=== PATIENT | female | born 2000 ===

== ENCOUNTER 2022-01-14 04:07 | Inpatient (IN) ==
[2022-01-14] MEDS ORDERED: LACTATED RINGER'S 1,000 ML IV ONE (08:05)
[2022-01-14] MEDS ORDERED: OXYTOCIN 30 UNITS/500 ML BAG IV PRN ×3 (08:38→20:26)
[2022-01-14] MEDS ORDERED: LACTATED RINGER'S 1,000 ML IV PRN (08:38)
[2022-01-14 08:49] LABS: Hematocrit (blood only) 41.4 % (37-47); Hemoglobin 14.2 g/dL (12.0-16.0); Mean Corpuscular Hemoglobin 33.6 pg (25-34); Mean Corpuscular Hgb Conc 34.3 g/dL (32-36); Mean Corpuscular Volume 97.9 fL (80-100); Mean Platelet Volume 9.9 fL (7.4-10.4); Platelet Count 208 K/uL (130-400); RDW Coefficient of Variation 14.5 % (11.5-14.5); RDW Standard Deviation 51.8 fL (36.4-46.3); Red Blood Count 4.23 M/uL (4.2-5.4); White Blood Count 14.09 K/uL (4.8-10.8)
[2022-01-14] MEDS ORDERED: ONDANSETRON INJ 2 MG/ML 2 ML VIAL IV PRN ×2 (08:50→14:27)
[2022-01-14] MEDS ORDERED: BUTORPHANOL TARTRATE 1 MG/ML VIAL IV PRN (08:50)
[2022-01-14] MEDS ORDERED: ACETAMINOPHEN 325 MG TAB PO PRN ×2 (08:56→20:26)
--- NOTE | 2022-01-14 09:03 | History & Physical Report ---
Date of Service January 14, 2022 Assessment & Plan (1) Uterine contractions at greater than 20 weeks of gestation: (2) Labor, prolonged latent phase: Plan: 21 years old at 39 weeks and 6 days of gestation presenting with contractions since yesterday. Minimal cervical change since admission about 4 hours ago. Uncomfortable with contractions. Vital signs stable afebrile, heart rate reassuring, GBS negative, Discussed prolonged latent phase management as IV fluid hyperhydration with expectant management versus oxytocin augmentation and AROM when able. Discussed pain management during as IV pain medications versus epidural in details. Patient denies any pain management right now and wants to wait longer for epidural and desires expectant management. Admission and Anticipated Discharge Date Admission Date: January 14, 2022 History of Present Illness Primary Care Provider: NO PCP Patient is a 22-year-old G1, P0 at 39 weeks and 6 days of gestation who presented to labor and delivery with contractions. She states she has contractions all day yesterday they got worse overnight and she had to come in at 4 AM when they become every 2 to 5 minutes. She rates her pain 8 out of 10. She denies leakage of fluid or vaginal bleeding. She reports good movements. Her has been uncomplicated except she had chlamydia infection in first trimester, treated and test of cure was negative. She has been with same partner since then. And he was treated. GBS negative. Allergies Allergy/AdvReac Type Severity Reaction Status Date / Time No Known Allergies Allergy Unverified 01/14/22 04:36 Home Medications Medication Instructions Recorded Confirmed Type vit no.95-ferrous 1 tab PO DAILY 01/14/22 01/14/22 History fumarate 28 mg-folic acid 800 mcg tablet () Patient History Social History Smoking Status: Never smoker Hx Alcohol Use: No Hx Substance Use: No Preferred Language: [place] Blocklayer Required: No Beliefs That Will Affect Care: None marital status: Current Living Situation: Spouse Other Information That Helps Us Care for You: No Feels Safe at Home: Yes Safety Concerns: Feels Safe At This Time Assistive Devices: None [employer] History Denies any history of genital herpes nor gonorrhea. See HPI for chlamydia. Review of Systems as per Subjective / HPI Physical Exam Constitutional: WD/WN, vitals as above well developed and + acute distress (Patient is uncomfortable with contractions) Gastrointestinal (Abdomen): Inspection/Auscultation: abdomen normal to inspection and + abdomen distended (Gravid, Ty[place] 6 to 7 pounds) Genitourinary: normal external appearance OB Exam Abdomen: + vertex Manual OB Exam: + cervical dilation 2 cm, + cervical effacement 60% and + station -2 OB Exam Monitor Tracing: + external uterine monitor used and + category I Results & Data ([facility]) Vital Signs (Past 12 Hours) Vital Signs Temp Pulse Resp BP 01/14/22 07:06 77 123/59 L 01/14/22 04:29 37.3 C 18 130/79 Laboratory Results Lab Results 01/14/22 01/14/22 Range/Units 08:00 08:39 WBC 14.09 H (4.8-10.8) K/uL RBC 4.23 (4.2-5.4) M/uL Hgb 14.2 (12.0-16.0) g/dL Hct 41.4 (37-47) % MCV 97.9 (80-100) fL MCH 33.6 (25-34) pg MCHC 34.3 (32-36) g/dL RDW Std Deviation 51.8 H (36.4-46.3) fL RDW Coeff of Araseli 14.5 (11.5-14.5) % Plt Count 208 (130-400) K/uL MPV 9.9 (7.4-10.4) fL SARS-CoV-2, RNA, NAAT NEGATIVE (NEGATIVE) Code Status & VTE Plan VTE Prophylaxis Plan VTE Prophylaxis will be ordered: No
--- NOTE | 2022-01-14 13:01 | Obstetrical Progress Note ---
Date of Service January 14, 2022 Assessment & Plan Admission and Anticipated Discharge Date Admission Date: January 14, 2022 Subjective Patient is reevaluated She has received IV stadol and sleepy now ctxs spaced out Recommended IV Oxytocin to augment and she accepted. FHR had been categ I , now decreased variability after stadol. Continue to monitor. Results & Data ([facility]) Vital Signs (Past 12 Hours) Vital Signs Temp Pulse Resp BP 01/14/22 12:39 98 H 20 115/57 L 01/14/22 11:53 99 H 131/62 01/14/22 07:06 77 123/59 L 01/14/22 04:29 37.3 C 18 130/79
[2022-01-14] MEDS ORDERED: ePHEDrine sulfate 50 MG/ML AMP ONE (13:57)
[2022-01-14] MEDS ORDERED: SODIUM CHLORIDE 0.9% INJ 10 ML VIAL ONE (13:58)
[2022-01-14] MEDS ORDERED: fentaNYL citrate 100 MCG/2 ML VIAL ONE (13:58)
[2022-01-14] MEDS ORDERED: BUPIVACAINE 0.25% 30 ML VIAL ONE (13:58)
[2022-01-14] MEDS ORDERED: fentaNYL 2MCG/ML ROPIVACAINE 1.25MG/ML 100 ML BAG EPI ONE (13:58)
[2022-01-14] MEDS ORDERED: NALOXONE HCL 0.4 MG/1 ML VIAL/CARP IV PRN (14:27)
[2022-01-14] MEDS ORDERED: diphenhydrAMINE 50 MG/ML VIAL IV PRN (14:27)
[2022-01-14] MEDS ORDERED: NALBUPHINE HCL INJ 10 MG/ML AMP IV PRN (14:27)
[2022-01-14] MEDS ORDERED: ePHEDrine sulfate 50 MG/ML AMP IV PRN (14:27)
[2022-01-14] MEDS ORDERED: NALOXONE HCL 1 MG in SODIUM CHLORIDE 0.9% 1000ML 1,000 ML IV PRN (14:27)
[2022-01-14] MEDS ORDERED: fentaNYL 2MCG/ML ROPIVACAINE 1.25MG/ML 100 ML BAG EPI PRN (14:27)
--- NOTE | 2022-01-14 14:29 | Anesthesiology Consultation ---
Date of Service January 14, 2022 Assessment & Plan Chart Review Chart Review: Patient NOT seen in Pre Admission Testing and Acceptable Risk for Labor Epidural Consults Requested none ASA ASA2 Proposed Anesthesia Anesthesia Type: Labor Epidural and CSE Risk / Benefits Reviewed With: PT / POA / Parent / Guardian, Accepts Plan and Informed Consent Obtained History Height/Weight Height: 5 ft 3 in Weight: 68.946 kg Allergies Allergy/AdvReac Type Severity Reaction Status Date / Time No Known Allergies Allergy Verified 01/14/22 10:26 Medications Home Medications Medication Instructions Recorded Confirmed Last Taken vit no.95-ferrous 1 tab PO DAILY 01/14/22 01/14/22 Unknown fumarate 28 mg-folic acid 800 mcg tablet () Active Medications Generic Name Dose Route Start Last Admin Trade Name Freq PRN Reason Stop Dose Admin Butorphanol Tartrate 1 mg 01/14/22 08:50 01/14/22 11:53 Butorphanol Tartrate 1 Mg/Ml Vial IV 02/13/22 08:49 1 mg Q3HWA PRN Administration Pain Oxytocin 30 units in 500 mls @ 4 mls/hr 01/14/22 12:02 01/14/22 13:10 Pitocin IV 01/16/22 12:01 0.24 units/hr .Q24H PRN 4 mls/hr Labor Induction/Augmentation Titration Protocol 0.24 UNITS/HR NPO Date Last Intake of Fluids: 01/14/22 Time Last Intake of Fluids: 14:00 Date Last Intake of Solids: 01/13/22 Time Last Intake of Solids: 19:00 Exercise / Class Metabolic Activity II 4-5 Yardwork/Stairs/Walk up hill Past Anesthesia History No Hx of Anesthesia Complications and No Family Hx of Anesthesia Complications History of PONV No Hx of PONV and No Hx of Motion Sickness Social History Smoking Status: Never smoker Hx Alcohol Use: No Hx Substance Use: No Review of Systems no chest pain or sob Physical Exam Vital Signs Last Vital Signs Temp 36.8 C 01/14/22 11:54 Pulse 94 H 01/14/22 14:22 Resp 20 01/14/22 12:39 BP 115/57 L 01/14/22 12:39 Pulse Ox 98 01/14/22 14:22 ENMT Mouth: no TMJ abnormality Thyromental Distance: > or= 3.5 Finger Breadths Mallampati Class: II Neck normal visual inspection Respiratory normal respiratory effort Auscultation: lungs clear to auscultation bilaterally Cardiovascular Rate/Rhythm: regular rate and regular rhythm Musculoskeletal Spine: normal cervical ROM Neurologic moves all extremities Psychiatric Orientation: alert and oriented x 3 Testing Laboratory Results 01/14/22 08:39
--- NOTE | 2022-01-14 17:10 | Obstetrical Progress Note ---
Date of Service January 14, 2022 Assessment & Plan Admission and Anticipated Discharge Date Admission Date: January 14, 2022 Subjective Patient is reevaluated. She was sleeping earlier after epidural and now awake. She has been comfortable, does not feel any pain or pressure. Vital signs stable afebrile, heart rate category 1, [place] with contractions every 2 to 3 minutes, oxytocin is at 4 mIU/min. Cervix is unchanged, 2 to 3 cm, 80%, head is even higher -3, sagittal suture is anterior-posterior but feels like asynclitic, unable to feel fontanelles. Bedside ultrasound is done by myself, presentation is vertex appears to be occipital anterior with the fetus back spine is on the anterior uterine wall, estimated weight is 3000 g. We will plan to increase Pitocin, change position with peanut ball and continue to monitor closely. All questions were answered. Results & Data ([facility]) Vital Signs (Past 12 Hours) Vital Signs Temp Pulse Resp BP Pulse Ox 01/14/22 17:02 83 98 01/14/22 16:58 85 108/58 L 01/14/22 16:57 82 98 01/14/22 16:52 98 H 98 01/14/22 16:47 91 H 98 01/14/22 16:43 88 109/60 01/14/22 16:42 89 98 01/14/22 16:37 98 H 99 01/14/22 16:32 103 H 95 01/14/22 16:29 113 H 126/81 01/14/22 16:27 89 96 01/14/22 16:22 84 95 01/14/22 16:17 81 95 01/14/22 16:12 89 107/52 L 97 01/14/22 16:07 84 96 01/14/22 16:02 89 96 01/14/22 15:58 81 108/57 L 01/14/22 15:57 80 95 01/14/22 15:52 95 H 96 01/14/22 15:47 83 95 01/14/22 15:43 80 105/51 L 01/14/22 15:42 82 96 01/14/22 15:37 80 96 01/14/22 15:32 81 96 01/14/22 15:29 80 107/54 L 01/14/22 15:27 86 97 01/14/22 15:22 81 96 01/14/22 15:17 80 97 01/14/22 15:12 86 98 01/14/22 15:09 90 124/57 L 01/14/22 15:07 83 98 01/14/22 15:03 85 117/61 01/14/22 15:02 86 97 01/14/22 14:59 90 119/66 01/14/22 14:57 85 98 01/14/22 14:54 85 117/57 L 01/14/22 14:52 86 98 01/14/22 14:48 88 112/53 L 01/14/22 14:47 87 97 01/14/22 14:46 83 115/55 L 01/14/22 14:44 94 H 115/57 L 01/14/22 14:42 84 116/56 L 97 01/14/22 14:37 109 H 96 01/14/22 14:32 108 H 97 01/14/22 14:27 109 H 98 01/14/22 14:22 94 H 98 01/14/22 14:17 93 H 98 01/14/22 13:52 36.8 C 20 01/14/22 12:39 98 H 20 115/57 L 01/14/22 11:54 36.8 C 20 01/14/22 11:53 99 H 131/62 01/14/22 07:06 77 123/59 L
[2022-01-14] MEDS ORDERED: HYDROCORTISONE ACETATE 25 MG SUPP PR PRN (20:26)
[2022-01-14] MEDS ORDERED: oxyCODONE/ACETAMINOPHEN 5mg/325mg TAB PO PRN (20:26)
[2022-01-14] MEDS ORDERED: BENZOCAINE 20% AER SPR 82.5 GM CAN EXT PRN (20:26)
[2022-01-14] MEDS ORDERED: DIPHTHERIA/TETANUS/PERTUSSIS 0.5 ML SYR/VIAL IM ONE (20:26)
[2022-01-14] MEDS ORDERED: bisacodyL 10 MG SUPP PR PRN (20:26)
[2022-01-14] MEDS ORDERED: MEASLES, MUMPS & RUBELLA VIRUS VIAL SQ ONE (20:26)
--- NOTE | 2022-01-14 20:36 | Delivery Summary ---
Vaginal Delivery Summary Date of Service January 14, 2022 Vaginal Delivery Summary The patient was found to be fluid dilated and desire to push. heart rate was having variable decelerations at some position mostly on her back most were on her back with recovery to on her right side. They appeared to be most likely from cord compression. The head was at +2 station. The vann was removed. Patient pushed with one contraction and brought the head down to +3. The heart rate was having prolonged deceleration at 70s to 80s. I was able to feel fontanelles and sutures well. The sagittal suture was transverse and posterior fontanelle was at 3 o'clock position. After verbal consent was obtained a Kiwi vacuum was placed at 1 cm anterior to the small/ posterior fontanelle. It was set to green zone. Bladder was empty. Vaginal sue were free from vacuum. With patient pushing and one/ single pull the head was delivered without difficulty in few seconds. No pop off. Vacuum was released. There was a nuchal cord around the neck x1. The shoulders delivered with minimal traction and the cord was released from neck and the baby was handed off to the mother. The cord was clamped times and cut and baby was handed off to the waiting pediatric team. The cord blood was obtained and the vagina and perineum were checked for lacerations. They were intact, no lacerations were found. The center was found to be in the vagina, delivered spontaneously as intact and complete. Uterus was explored and found to be empty, lower segment was cleared of all clots and debris's. Fundus was firm and EBL was 100 mL. The mom and baby tolerated procedure well, the sponge and instrument count was correct x2. The baby was a viable female infant, Apgars were 8/9 and weight is pending. No complications happened and I was present during whole procedure.
[2022-01-15] MEDS: IBUPROFEN 600 MG TAB PO PRN ×2 (01:13→18:45)
[2022-01-15 06:44] LABS: Hematocrit (blood only) 36.3 % (37-47); Hemoglobin 12.6 g/dL (12.0-16.0); Mean Corpuscular Hemoglobin 33.8 pg (25-34); Mean Corpuscular Hgb Conc 34.7 g/dL (32-36); Mean Corpuscular Volume 97.3 fL (80-100); Mean Platelet Volume 9.9 fL (7.4-10.4); Platelet Count 194 K/uL (130-400); RDW Coefficient of Variation 14.6 % (11.5-14.5); RDW Standard Deviation 51.9 fL (36.4-46.3); Red Blood Count 3.73 M/uL (4.2-5.4); White Blood Count 14.62 K/uL (4.8-10.8)
[2022-01-15] MEDS: DOCUSATE SODIUM 100 MG CAP PO SCH ×3 (08:59→20:32)
--- NOTE | 2022-01-15 08:59 | Anesthesia Procedure Note ---
Date of Service January 15, 2022 Anesthesia Post Epidural Note Vital Signs Vital Signs: Temp Pulse Resp BP Pulse Ox 37 C 97 H 18 123/77 98 01/15/22 08:50 01/15/22 08:50 01/15/22 08:50 01/15/22 08:50 01/14/22 20:42 Pain Intensity Bilateral Back: Pain Intensity: 2 Notes Mental Status: alert / awake / arousable and participated in evaluation Nausea / Vomiting: adequately controlled Pain: adequately controlled Airway Patency, RR, SpO2: stable & adequate BP & HR: stable & adequate Hydration State: stable & adequate Neuraxial Anesthesia: was administered and sensory block is resolving Anesthetic Complications: no major complications apparent and Pt Satisfied with anesthetic care Epidural: Removed without complications and With tip intact
[2022-01-15] MEDS: PRENATAL VITAMIN 1 TAB PO SCH (09:00)
[2022-01-15] MEDS: FERROUS SULFATE 325 MG TAB PO SCH (09:00)
--- NOTE | 2022-01-15 10:04 | Obstetrical Progress Note ---
Date of Service January 15, 2022 Assessment & Plan Admission and Anticipated Discharge Date Admission Date: January 14, 2022 Subjective Patient is seen and examined. She feels well, no complaints. Ambulating without dizziness Voiding without difficulty Tolerating regular diet with out N&V Bleeding is minimal No fever/ chills/ CP/ SOB/ N&V/ Leg pain Breast feeding without problems Vital Signs Temp Pulse Pulse Resp BP BP 01/15/22 08:50 37 C 97 H 18 123/77 01/15/22 04:26 36.9 C 90 18 126/71 01/14/22 23:15 37.1 C 92 H 18 138/70 01/14/22 22:45 99 H 129/60 01/14/22 22:35 102 H 122/59 L 01/14/22 22:30 18 01/14/22 22:25 102 H 114/58 L 01/14/22 22:15 110 H 118/57 L 01/14/22 22:05 90 122/60 01/14/22 22:00 18 01/14/22 21:55 103 H 114/53 L 01/14/22 21:46 93 H 119/58 L 01/14/22 21:35 98 H 117/66 01/14/22 21:30 18 01/14/22 21:25 90 130/73 01/14/22 21:22 88 125/67 01/14/22 21:16 100 H 77/50 L 01/14/22 21:15 18 01/14/22 21:06 100 H 111/55 L Lab Results 01/14/22 01/14/22 01/15/22 Range/Units 08:00 08:39 06:10 WBC 14.09 H 14.62 H (4.8-10.8) K/uL RBC 4.23 3.73 L (4.2-5.4) M/uL Hgb 14.2 12.6 (12.0-16.0) g/dL Hct 41.4 36.3 L (37-47) % MCV 97.9 97.3 (80-100) fL MCH 33.6 33.8 (25-34) pg MCHC 34.3 34.7 (32-36) g/dL RDW Std Deviation 51.8 H 51.9 H (36.4-46.3) fL RDW Coeff of Araseli 14.5 14.6 H (11.5-14.5) % Plt Count 208 194 (130-400) K/uL MPV 9.9 9.9 (7.4-10.4) fL SARS-CoV-2, RNA, NAAT NEGATIVE (NEGATIVE) PE: General: Alert, orientedx3, NAD Abd: soft, NT, fundus firm, below Umbilicus Perineum intact, Lochia rubra minimal Ext; NT, no edema AP: 21 yo s/p , ppd# 1 VSS Afebrile doing well Continue routine care All questions were answered D/C home tomorrow Results & Data ([facility]) Vital Signs (Past 12 Hours) Vital Signs Temp Pulse Pulse Resp BP BP 01/15/22 08:50 37 C 97 H 18 123/77 01/15/22 04:26 36.9 C 90 18 126/71 01/14/22 23:15 37.1 C 92 H 18 138/70 01/14/22 22:45 99 H 129/60 01/14/22 22:35 102 H 122/59 L 01/14/22 22:30 18 01/14/22 22:25 102 H 114/58 L 01/14/22 22:15 110 H 118/57 L 01/14/22 22:05 90 122/60 01/14/22 22:00 18 01/14/22 21:55 103 H 114/53 L 01/14/22 21:46 93 H 119/58 L 01/14/22 21:35 98 H 117/66 01/14/22 21:30 18 01/14/22 21:25 90 130/73 01/14/22 21:22 88 125/67 01/14/22 21:16 100 H 77/50 L 01/14/22 21:15 18 01/14/22 21:06 100 H 111/55 L
--- NOTE | 2022-01-15 15:05 | Anesthesiology Progress Note ---
Date of Service January 15, 2022 Anesthesia Post Procedure Vital Signs Vital Signs: Temp Pulse Pulse Resp BP BP Pulse Ox 01/15/22 08:50 37 C 97 H 18 123/77 01/15/22 04:26 36.9 C 90 18 126/71 01/14/22 23:15 37.1 C 92 H 18 138/70 01/14/22 22:45 99 H 129/60 01/14/22 22:35 102 H 122/59 L 01/14/22 22:30 18 01/14/22 22:25 102 H 114/58 L 01/14/22 22:15 110 H 118/57 L 01/14/22 22:05 90 122/60 01/14/22 22:00 18 01/14/22 21:55 103 H 114/53 L 01/14/22 21:46 93 H 119/58 L 01/14/22 21:35 98 H 117/66 01/14/22 21:30 18 01/14/22 21:25 90 130/73 01/14/22 21:22 88 125/67 01/14/22 21:16 100 H 77/50 L 01/14/22 21:15 18 01/14/22 21:06 100 H 111/55 L 01/14/22 21:00 18 01/14/22 20:55 104 H 127/60 01/14/22 20:47 104 H 138/60 01/14/22 20:45 18 01/14/22 20:42 106 H 98 01/14/22 20:37 111 H 98 01/14/22 20:32 111 H 98 01/14/22 20:30 37.1 C 18 01/14/22 20:27 114 H 149/65 H 97 01/14/22 20:22 102 H 98 01/14/22 20:17 92 H 99 01/14/22 20:15 18 01/14/22 20:12 115 H 100 01/14/22 20:07 94 H 100 01/14/22 20:02 102 H 100 01/14/22 20:00 18 01/14/22 19:58 93 H 183/88 H 01/14/22 19:57 95 H 100 01/14/22 19:52 102 H 100 01/14/22 19:47 98 H 100 01/14/22 19:45 18 01/14/22 19:42 107 H 100 01/14/22 19:37 94 H 99 01/14/22 19:32 36.9 C 97 H 99 01/14/22 19:30 18 01/14/22 19:27 93 H 98 01/14/22 19:26 102 H 116/57 L 01/14/22 19:22 88 98 01/14/22 19:17 90 97 01/14/22 19:15 18 01/14/22 19:12 103 H 98 01/14/22 19:10 18 01/14/22 19:07 91 H 99 01/14/22 19:02 89 18 98 01/14/22 18:57 88 99 01/14/22 18:56 88 119/66 01/14/22 18:52 93 H 99 01/14/22 18:47 94 H 98 01/14/22 18:42 94 H 98 01/14/22 18:37 98 H 99 01/14/22 18:32 88 99 01/14/22 18:27 101 H 99 01/14/22 18:26 37.1 C 01/14/22 18:22 88 99 01/14/22 18:17 91 H 97 01/14/22 18:12 91 H 122/59 L 98 01/14/22 18:07 92 H 96 01/14/22 18:02 87 97 01/14/22 17:59 85 110/59 L 01/14/22 17:57 86 98 01/14/22 17:52 89 97 01/14/22 17:47 88 98 01/14/22 17:43 96 H 128/59 L 01/14/22 17:42 88 98 01/14/22 17:37 86 97 01/14/22 17:32 84 97 01/14/22 17:27 84 111/57 L 98 01/14/22 17:22 90 98 01/14/22 17:17 85 98 01/14/22 17:13 83 111/55 L 01/14/22 17:12 81 98 01/14/22 17:10 36.7 C 20 01/14/22 17:07 84 98 01/14/22 17:02 83 98 01/14/22 16:58 85 108/58 L 01/14/22 16:57 82 98 01/14/22 16:52 98 H 98 01/14/22 16:47 91 H 98 01/14/22 16:43 88 109/60 01/14/22 16:42 89 98 01/14/22 16:37 98 H 99 01/14/22 16:32 103 H 95 01/14/22 16:29 113 H 126/81 01/14/22 16:27 89 96 01/14/22 16:22 84 95 01/14/22 16:17 81 95 01/14/22 16:12 89 107/52 L 97 01/14/22 16:07 84 96 01/14/22 16:02 89 96 01/14/22 15:58 81 108/57 L 01/14/22 15:57 80 95 01/14/22 15:52 95 H 96 01/14/22 15:47 83 95 01/14/22 15:43 80 105/51 L 01/14/22 15:42 82 96 01/14/22 15:37 80 96 01/14/22 15:32 81 96 01/14/22 15:29 80 107/54 L 01/14/22 15:27 86 97 01/14/22 15:22 81 96 01/14/22 15:17 80 97 01/14/22 15:12 86 98 01/14/22 15:09 90 124/57 L 01/14/22 15:07 83 98 01/14/22 15:03 36.7 C 85 18 117/61 01/14/22 15:02 86 97 01/14/22 14:59 90 119/66 01/14/22 14:57 85 98 01/14/22 14:54 85 117/57 L 01/14/22 14:52 86 98 01/14/22 14:48 88 112/53 L 01/14/22 14:47 87 97 01/14/22 14:46 83 115/55 L 01/14/22 14:44 94 H 115/57 L 01/14/22 14:42 84 116/56 L 97 01/14/22 14:37 109 H 96 01/14/22 14:32 108 H 97 01/14/22 14:27 109 H 98 01/14/22 14:22 94 H 98 01/14/22 14:17 93 H 98 Pain Intensity Bilateral Back: Pain Intensity: 2 Transfer of Care Handoff Completed per policy Notes Mental Status: alert / awake / arousable Patient Amnestic to Procedure: Yes Nausea / Vomiting: adequately controlled Pain: adequately controlled Airway Patency, RR, SpO2: stable & adequate BP & HR: stable & adequate Hydration State: stable & adequate Neuraxial Anesthesia: was administered and sensory block resolved Anesthetic Complications: no major complications apparent and Pt Satisfied with anesthetic care Notes: I was notified by the patient's nurse that the patient was having some pain over her entire back. The nurse stated that the patient had been hunched over constantly breast feeding. When I went to evaluate the patient she was in the bathroom with the baby's father. I asked if her back still bothered her and was told that it was not bothering her now. I was unable to examine the patient because she was in the bathroom. I told the patient's nurse to let me know if the patient's back pain returns.
[2022-01-15] MEDS ORDERED: bisacodyL 5 MG TABEC PO SCH (20:00)
[2022-01-16 06:15] LABS: Basophils # (auto) 0.01 K/uL (0-0.2); Basophils % (auto) 0.1 %; Eosinophils # (auto) 0.23 K/uL (0-0.5); Hematocrit (blood only) 38.1 % (37-47); Hemoglobin 13.1 g/dL (12.0-16.0); Immature Granulocytes # (auto) 0.04 K/uL (0.00-0.02); Immature Granulocytes % (auto) 0.3 %; Lymphocytes # (auto) 2.81 K/uL (1.2-3.4); Lymphocytes % (auto) 24.2 %; Mean Corpuscular Hemoglobin 33.9 pg (25-34); Mean Corpuscular Hgb Conc 34.4 g/dL (32-36); Mean Corpuscular Volume 98.4 fL (80-100); Mean Platelet Volume 9.6 fL (7.4-10.4); Monocytes # (auto) 0.86 K/uL (0.11-0.59); Monocytes % (auto) 7.4 %; Neutrophils # (auto) 7.64 K/uL (1.4-6.5); Platelet Count 193 K/uL (130-400); RDW Coefficient of Variation 14.6 % (11.5-14.5); RDW Standard Deviation 52.4 fL (36.4-46.3); Red Blood Count 3.87 M/uL (4.2-5.4); White Blood Count 11.59 K/uL (4.8-10.8)
[2022-01-16] MEDS: IBUPROFEN 600 MG TAB PO PRN ×2 (08:01→12:20)
[2022-01-16] MEDS: DOCUSATE SODIUM 100 MG CAP PO SCH (08:39)
[2022-01-16] MEDS: FERROUS SULFATE 325 MG TAB PO SCH (08:39)
[2022-01-16] MEDS: PRENATAL VITAMIN 1 TAB PO SCH (08:39)
--- NOTE | 2022-01-16 09:16 | Obstetrical Progress Note ---
Date of Service January 16, 2022 Assessment & Plan (1) Normal course: PPD #2 pt doing well d/c home with instrcutions Results & Data ([facility]) Vital Signs (Past 12 Hours) Vital Signs Temp Pulse Resp BP Pulse Ox 01/16/22 07:35 37.0 C 100 H 20 116/67 97 01/15/22 22:56 37.1 C 86 16 122/75 94
== END 2022-01-16 13:09 | disposition home or self-care (01) | DRG 807 ==
LOC: OPB 04:07 → 4S1 04:13 → 4S2 23:17